=== PATIENT | female | born 1980 | race Caucasian/White ===

== ENCOUNTER 2020-04-15 15:17 | Emergency (ER) | payer OTHER ==
[~2020-04-15] VITALS: Ht 175.3 cm; Wt 65.8 kg
[~2020-04-15 15:17] MED LIST: CITA20 PO; IBUP800 PO; LEVSOD150 PO; OXYACE5T PO
[2020-04-15] MEDS ORDERED: IBU800 MG PO (16:41)
[2020-04-15] MEDS ORDERED: HYDR1TAB94 PO (16:41)
== END 2020-04-15 16:48 | disposition home or self-care (01) ==
LOC: ER 15:17
DX: S20.211A Contusion of right front wall of thorax, initial encounter (principal); Z88.2 Allergy status to sulfonamides; V86.99XA Unspecified occupant of other special all-terrain or other off-road motor vehicle injured in nontraffic accident, initial encounter
CPT/HCPCS: 71101; 99283-25; A9270-GY

== ENCOUNTER 2021-12-04 11:15 | Day surgery (SDC) | payer OTHER ==
[~2021-12-04] VITALS: Ht 172.7 cm; Wt 66.4 kg
[~2021-12-04 11:15] MED LIST changes: +HYDR1TAB94 PO; +IBU800 MG PO
[2021-12-04] MEDS ORDERED: EFFEXOR XR37.5 MG PO (12:04)
[2021-12-04] MEDS ORDERED: ESTRADIOL0.5 MG PO (12:07)
--- NOTE | 2021-12-04 12:15 | NUR ---
12/04/21 1215 Yair Schmitz PRP DRAWN AND SENT TO OR PER ORDERS
== END 2021-12-04 15:52 | disposition home or self-care (01) ==
LOC: ORSCSDS 11:15
PROVIDERS: Orthopaedic Surgery
PROC: 0LU14KZ Supplement Right Shoulder Tendon with Nonautologous Tissue Substitute, Percutaneous Endoscopic Approach (ICD-10-PCS; principal; 2021-12-04 12:45)
PROC: 0LS34ZZ Reposition Right Upper Arm Tendon, Percutaneous Endoscopic Approach (ICD-10-PCS; principal; 2021-12-04 12:45)
PROC: 0LQ14ZZ Repair Right Shoulder Tendon, Percutaneous Endoscopic Approach (ICD-10-PCS; principal; 2021-12-04 12:45)
DX: M75.111 Incomplete rotator cuff tear or rupture of right shoulder, not specified as traumatic (principal); M75.21 Bicipital tendinitis, right shoulder; M75.31 Calcific tendinitis of right shoulder; M75.41 Impingement syndrome of right shoulder; E03.9 Hypothyroidism, unspecified; F41.9 Anxiety disorder, unspecified; Z79.899 Other long term (current) drug therapy
CPT/HCPCS: A9270; C1713; J0171; J0690; J1100; J2250; J2405; J2704; J3010; J7120